=== PATIENT | female | born 1945 | race Caucasian/White ===

== ENCOUNTER → 2016-08-19 | Outpatient (CLI) | payer MEDICARE, OTHER | LOC: MC.RAD 13:00 | DX: Z12.31 Encounter for screening mammogram for malignant neoplasm of breast (principal) ==

== ENCOUNTER → 2017-04-07 | Outpatient (CLI) | payer MEDICARE ==
[~2017-04-07] VITALS: Ht 152.4 cm; Wt 80.0 kg
[~2017-04-07] MED LIST: COZAAR 25MG25 MG/TAB PO; CYANOCOBAL1000 MCG/M IM; FOSAMAX 70MG TA70 MG PO; MINOCYCLIN100 MG/CAP PO; NORVASC2.5 MG PO; REQUIP0.25 MG PO
[2017-04-07 10:36] VITALS: BP 156/84; PULSE 76
[2017-04-07 12:08] VITALS: BP 168/88; PULSE 140
[2017-04-07 12:10] VITALS: BP 180/92; PULSE 137
[2017-04-07 12:12] VITALS: BP 170/88; PULSE 116
[2017-04-07 12:13] VITALS: BP 158/86; PULSE 105
== END ==
LOC: COL.CARD 10:05
DX: R07.9 Chest pain, unspecified (principal); R06.02 Shortness of breath
CPT/HCPCS: A9502